=== PATIENT | female | born 1960 | race Two or more races ===

== ENCOUNTER 2018-05-15 18:04 | Emergency (ER) | payer OTHER | END 2018-05-15 18:25 | disposition left against medical advice (07) | DX: Z53.21 Procedure and treatment not carried out due to patient leaving prior to being seen by health care provider (principal) ==

== ENCOUNTER → 2018-05-23 | Day surgery (SDC) | payer BC, OTHER ==
[~2018-05-23] MED LIST: ALBUTEROL 3 ML DEYVIAL IH PRN; HYDROCODONE/APAP 5/325 TAB PO PRN; LR 1,000 ML IV ONE; MIDAZOLAM 2 MG/2 ML VIAL IVP ONE; MIDAZOLAM 2 MG/2 ML VIAL ONE; NALOXONE HCL 0.4 MG/ML INJ IVP PRN; ONDANSETRON 4 MG/2 ML VIAL IVP PRN; ONDANSETRON 4 MG/2 ML VIAL ONE; PROMETHAZINE HCL 25 MG/ML INJ IVP PRN; PROPOFOL/EMULSION 500 MG/50 ML BOTTLE IV ONE; ceFAZolin 2 GM/DEXTROSE 100 ML IV ONE; fentaNYL 100 MCG/2 ML INJ IVP PRN; fentaNYL 100 MCG/2 ML INJ ONE; oxyCODONE IR 5 MG TAB PO PRN
--- NOTE | 2018-05-23 14:12 | PDHPUP ---
History & Physical Update H&P update statement: This history and physical update is based on an assessment of the patient which was completed after admission or registration (within 24 hours), but prior to the surgery/procedure. H&P update: H&P reviewed & patient examined, no change in patient's condition since H&P completed
--- NOTE | 2018-05-23 16:22 | PDANEPAE ---
ANE History of Present Illness Re excision right breast. ANE Past Medical History - Cardiovascular History Hx Hypertension: Yes Hx Arrhythmias: Yes Hx Chest Pain: No Hx Coronary Artery / Peripheral Vascular Disease: No Hx CHF / Valvular Disease: No Hx Palpitations: No Cardiovascular History Comment: pouncer machine in [place] told her she has 2 different arrhythmia's and tachycardia. She has been treated with medication and states that she has no more problems with arrythmias since treatment. - Pulmonary History Hx COPD: No Hx Asthma/Reactive Airway Disease: No Hx Recent Upper Respiratory Infection: No Hx Oxygen in Use at Home: No Hx Sleep Apnea: No Sleep Apnea Screening Result - Last Documented: Positive Pulmonary History Comment: raquel triggers. sometimes she has asthma issues that take of themselves - Neurologic History Hx Cerebrovascular Accident: No Hx Seizures: No Hx Dementia: No - Endocrine History Hx Diabetes: No Obesity: mild, moderate - Renal History Hx Renal Disorders: Yes Renal History Comment: hx of kidney stones - Liver History Hx Hepatic Disorders: Yes Hepatic History Comment: cysts on liver still - Neurological & Psychiatric Hx Hx Neurological and Psychiatric Disorders: No Neurological / Psychiatric History Comment: sometimes for anxiety issues she uses calming tea - Cancer History Hx Cancer: Yes Cancer History Comment: breast ca currently - Congenital Disorder History Hx Congenital Disorders: No - GI History Hx Gastrointestinal Disorders: Yes Gastrointestinal History Comment: constipation uses prunes and fiber - Other Health History Other Health History: wears glasses - Chronic Pain History Chronic Pain: No - Surgical History Prior Surgeries: 05/15/18 right breast lumpectomy with axillary dissection, left breast bx and vasular access port placed with Kam. . laser procedure for cysts on liver. open procedure to drain cysts on liver ANE Review of Systems Review of Systems: - Exercise capacity METS (RN): 3 METS ANE Patient History - Allergies Allergies/Adverse Reactions: acetaminophen [From Tylenol] Allergy (Verified 05/14/18 16:45) able to take normal doses- makes her very dizzy in high dose ambroxol Allergy (Verified 05/22/18 12:03) makes her very dizzy guaifenesin [From Robitussin] Allergy (Verified 05/22/18 12:03) makes her very dizzy and headache pseudoephedrine [From Sudafed] Allergy (Verified 05/22/18 12:03) dextromthorphan Allergy (Uncoded 05/22/18 12:03) sudafed Allergy (Uncoded 05/22/18 12:03) - Home Medications Home medications: home medication list seen and reviewed Home Medications: Aspirin 325 mg (*) 05/14/18 [Last Taken 05/14/18] Hydrochlorothiazide 05/14/18 [Last Taken 05/22/18] Losartan Potassium 05/14/18 [Last Taken 05/23/18 10:15] Propranolol Sr 05/14/18 [Last Taken 05/23/18 10:15] - NPO status NPO Status: no food or drink >8 hours NPO Since - Liquids (Date): 05/22/18 NPO Since - Liquids (Time): 22:15 NPO Since - Solids (Date): 05/22/18 NPO Since - Solids (Time): 22:00 - Anes Hx Anes Hx: no prior problems, post operative nausea - Smoking Hx Smoking Status: Never smoked - Alcohol Use Alcohol Use: None - Family Anes Hx Family Anes Hx: none Family Hx Anesthesia Complications: none ANE Labs/Vital Signs - Vital Signs Blood Pressure: 125/72 Heart Rate: 76 Respiratory Rate: 20 O2 Sat (%): 96 Height: 164 cm Weight: 102.058 kg ANE Physical Exam - Airway Neck exam: FROM Mallampati Score: Class 3 Mouth exam: normal dental/mouth exam - Pulmonary Pulmonary: no respiratory distress, no rales or rhonchi - Cardiovascular Cardiovascular: regular rate and rhythym, no murmur, rub, or gallop - ASA Status ASA Status: II ANE Anesthesia Plan Anesthesia Plan: GA w LMA
--- NOTE | 2018-05-23 17:57 | POSTOPPROG ---
Post Op Note Date of Operation: 05/23/18 Surgeon: Isabel Humphrey Anesthesiologist: merritt Anesthesia: GET(General Endotracheal) Pre-op Diagnosis: hematoma l positive margin r Post-op Diagnosis: same Indication: 57 yo with T2N2 breast ca, positive medial margin, hematoma l Procedure: evac hematoma l, excise margin r Findings: hematoma Inf/Abcess present in the surg proc area at time of surgery?: No Specimen(s): stitch mackey new medial
--- NOTE | 2018-05-23 18:13 | POSTANESTH ---
Post Anesthetic Evaluation Cardiovascular Status: Normal, Stable Respiratory Status: Normal, Stable Level of Consciousness/Mental Status: Can Participate in Eval Pain Control: Adequate, Prn Tx Ordered Nausea/Vomiting Control: Adequate, Prn Tx Ordered Complications Possibly Related to Anesthesia: None Noted
[2018-05-23 19:51] VITALS: BP 139/83
--- NOTE | 2018-05-25 05:38 | GOP ---
DATE OF OPERATION: 05/23/2018 SURGEON: Isabel Humphrey MD SET ILLUSTRATOR: Annabella Fisher, GONZÁLEZ. ANESTHESIA: General. ANESTHESIOLOGIST: Selin Sutton MD. PREOPERATIVE DIAGNOSIS: Right upper outer breast cancer with positive margin and left breast hematoma. POSTOPERATIVE DIAGNOSIS: Right upper outer breast cancer with positive margin and left breast hematoma. PROCEDURE PERFORMED: Re-excision medial margin right breast, and evacuation hematoma left breast. FINDINGS: Old blood SPECIMENS: New medial margin. ESTIMATED BLOOD LOSS: 10 cc. INDICATIONS: The patient is a 57-year-old woman with breast cancer. Her medial margin was positive. She presents for re-excision. She also had a hematoma on her left breast. DESCRIPTION OF PROCEDURE: The patient is brought into the operating room, placed supine on the table. General anesthesia was administered. Her bilateral breasts were prepped and draped in the usual sterile fashion. I made an incision over her previous scar on the right breast. I evacuated the seroma. I used an Allis clamp to grasp the medial margin and excised this. I marked it with a stitch. Hemostasis achieved. Wound closed with 3-0 Vicryl followed by 4-0 Monocryl. On the left breast, I performed ultrasound and saw a large fluid collection with a variation in density, representing a hematoma. I made an incision over the previous scar. I evacuated the hematoma and no additional bleeding was noted. Skin closed with 3-0 Vicryl followed by 4-0 Monocryl, Mastisol, Steri-Strips, and sterile dressings were applied. She was awakened in the operating room extubated transferred to PACU in stable condition. /[id number]/MODL MTDD
== END | disposition home or self-care (01) ==
LOC: FSGY 08:00 → EDSTATUS 14:45 → FSGY 19:54
PROVIDERS: ATTEND Surgery
PROC: 0HBT0ZZ Excision of Right Breast, Open Approach (ICD-10-PCS; principal; 2018-05-23 14:45)
DX: C50.411 Malignant neoplasm of upper-outer quadrant of right female breast (principal); Z17.0 Estrogen receptor positive status [ER+]
CPT/HCPCS: J0690; J2250; J2405; J2704; J3010

== ENCOUNTER → 2018-07-10 | Outpatient (CLI) | payer BC ==
[~2018-07-10] MED LIST changes: +ACETAMINOPHEN 500 MG TAB PO ONE; -ALBUTEROL 3 ML DEYVIAL IH PRN; +APREPITANT IV ONE; +CYCLOPHOSPHAMIDE IV ONE; +DEXAMETHASONE IV ONE; +DOXORUBICIN IV ONE; +FILGRASTIM-SNDZ 480 MCG/0.8 ML SYR SC SCH; -HYDROCODONE/APAP 5/325 TAB PO PRN; -LR 1,000 ML IV ONE; -MIDAZOLAM 2 MG/2 ML VIAL IVP ONE; -MIDAZOLAM 2 MG/2 ML VIAL ONE; -NALOXONE HCL 0.4 MG/ML INJ IVP PRN; +NS IV ONE; -ONDANSETRON 4 MG/2 ML VIAL IVP PRN; -ONDANSETRON 4 MG/2 ML VIAL ONE; +PALONOSETRON HCL IV ONE; -PROMETHAZINE HCL 25 MG/ML INJ IVP PRN; -PROPOFOL/EMULSION 500 MG/50 ML BOTTLE IV ONE; -ceFAZolin 2 GM/DEXTROSE 100 ML IV ONE; -fentaNYL 100 MCG/2 ML INJ IVP PRN; -fentaNYL 100 MCG/2 ML INJ ONE; -oxyCODONE IR 5 MG TAB PO PRN
[2018-07-10 10:25] VITALS: BP 105/69
== END | disposition home or self-care (01) ==
LOC: F1NOP 09:47 → MERGE 09:47 → EDSTATUS 09:53
PROVIDERS: ATTEND Internal Medicine Hematology & Oncology
DX: C50.919 Malignant neoplasm of unspecified site of unspecified female breast (principal)
CPT/HCPCS: J0185; J1100; J1642; J2469; J9000; J9070; Q5101

== ENCOUNTER 2018-07-18 17:14 | Emergency (ER) | payer OTHER ==
--- NOTE | 2018-07-18 19:21 | EDPHY ---
H & P Stated Complaint: MATTY hip pain Time Seen by Provider: 07/18/18 18:46 HPI/ROS: CHIEF COMPLAINT: Bilateral hip pain HISTORY OF PRESENT ILLNESS: 57-year-old female with breast cancer, currently undergoing chemotherapy presents with bilateral hip pain. Last chemotherapy was 2 weeks ago. She has been self injecting Zarxio over the past few days and has noticed gradually increasing bilateral hip pain. The pain is described as an achiness and is worse at night and while at rest. The pain improves with ambulation. No recent injury and no fever. REVIEW OF SYSTEMS: complete 10 point ROS reviewed and is negative except for the noted elements in the HPI - Personal History Current Tetanus/Diphtheria Vaccine: Yes Current Tetanus Diphtheria and Acellular Pertussis (TDAP): Yes - Medical/Surgical History Hx Asthma: Yes Hx Chronic Respiratory Disease: No Hx Diabetes: No Hx Cardiac Disease: Yes Hx Renal Disease: No Hx Cirrhosis: No Hx Alcoholism: No Hx HIV/AIDS: No Hx Splenectomy or Spleen Trauma: No Other PMH: Breast CA, HTN, tachycardia, - Social History Smoking Status: Never smoked Alcohol Use: None Drug Use: None - Physical Exam Exam: General Appearance: Alert, pleasant Eyes: Pupils equal and round, no conjunctival pallor ENT, Mouth: Mucous membranes moist Neck: Normal inspection Respiratory: Lungs are clear to auscultation Cardiovascular: Regular rate and rhythm Gastrointestinal: Abdomen is soft and nontender Neurological: A&O, nonfocal, normal gait Skin: Warm and dry, no rash Extremities: Bilateral hips-normal inspection, no tenderness, range of motion without pain Psychiatric: Mood and affect normal Constitutional: Initial Vital Signs Temperature (C) 37.6 C 07/18/18 17:22 Heart Rate 98 07/18/18 17:22 Respiratory Rate 16 07/18/18 17:22 Blood Pressure 123/69 H 07/18/18 17:22 O2 Sat (%) 93 07/18/18 17:22 O2 Delivery Mode Room Air Allergies/Adverse Reactions: acetaminophen [From Tylenol] Allergy (Verified 05/14/18 16:45) able to take normal doses- makes her very dizzy in high dose ambroxol Allergy (Verified 05/22/18 12:03) makes her very dizzy guaifenesin [From Robitussin] Allergy (Verified 05/22/18 12:03) makes her very dizzy and headache hydrocodone Allergy (Verified 07/18/18 17:21) pseudoephedrine [From Sudafed] Allergy (Verified 05/22/18 12:03) dextromthorphan Allergy (Uncoded 05/22/18 12:03) sudafed Allergy (Uncoded 05/22/18 12:03) Home Medications: Medication Instructions Recorded Losartan Potassium 05/14/18 Propranolol Sr 05/14/18 Dulcolax Stool Softener 07/18/18 Hydrocodone/APAP 5/325 [[place] 1 - 2 tab PO Q4H PRN #20 tab 07/18/18 5/325] Medical Decision Making ED Course/Re-evaluation: This patient presents with bilateral hip pain secondary to Zarxio. She has stopped taking this medication, so the pain should gradually subside. She understands that she is likely to have similar pain if she needs Zarxio in the future. Hydrocodone 1 tablet orally given. Departure - Departure Disposition: Home, Routine, Self-Care Clinical Impression: Bilateral hip pain Condition: Good Instructions: Hip Pain (ED) Referrals: Jaymie Gonzalez DO [Primary Care Provider] - As per Instructions Prescriptions: Hydrocodone/APAP 5/325 [[place] 5/325] 1 - 2 tab PO Q4H PRN #20 tab PRN Reason: Pain, Moderate Print Language: Palestinian
[2018-07-18 19:35] VITALS: BP 153/65
== END 2018-07-18 19:34 | disposition home or self-care (01) ==
DX: M25.552 Pain in left hip (principal); M25.551 Pain in right hip; I10 Essential (primary) hypertension; Z85.3 Personal history of malignant neoplasm of breast

== ENCOUNTER → 2018-08-20 | Outpatient (CLI) | payer BC, OTHER | LOC: F1NOP 15:39 ==

== ENCOUNTER → 2018-10-22 | Outpatient (CLI) | payer OTHER | LOC: FIMAGING 15:43 ==

== ENCOUNTER → 2018-12-30 | Outpatient (CLI) | payer OTHER | LOC: FIMAGING 09:13 ==